=== PATIENT | male | born 1970 | race Caucasian/White ===

== ENCOUNTER 2023-08-03 14:07 | Emergency (ER) | payer BC ==
[~2023-08-03] VITALS: Ht 160 cm; Wt 81.6 kg
[2023-08-03 14:26] VITALS: BP 142/92; PULSE 83; RESP 19; TEMP 97.7; O2SAT 98
[2023-08-03 15:07] LABS: APPEARANCE,URINE CLEAR (CLEAR); BILIRUBIN,URINE NEGATIVE (NEGATIVE); BLOOD, URINE NEGATIVE (NEGATIVE); COLOR,URINE YELLOW (YELLOW); LEUKOCYTE ESTERASE ,URINE NEGATIVE (NEGATIVE); NITRITE, URINE NEGATIVE (NEGATIVE); PROTEIN,URINE NEGATIVE (NEGATIVE); UGLUCOSE 2+ (NEGATIVE); UROBILINOGEN,URINE 0.2 EU/dL (0.2 - 1)
[2023-08-03 15:42] LABS: BASOPHILS # (AUTO) 0.1 K/uL (0.00-0.22); BASOPHILS % (AUTO) 1.1 % (0.0-2.0); EOSINOPHILS # (AUTO) 0.1 K/uL (0-0.4); EOSINOPHILS % (AUTO) 1.8 % (0.0-4.0); HEMATOCRIT 47.1 % (36-52); HEMOGLOBIN 16.8 g/dL (12.0-18.0); LYMPHOCYTES # (AUTO) 1.9 K/uL (2.0-11.5); MEAN CORPUSCULAR HEMOGLOBIN 32 pg (27-31); MEAN CORPUSCULAR HGB CONC 36 g/dL (33-37); MEAN CORPUSCULAR VOLUME 88.9 fL (80-94); MONOCYTES # (AUTO) 0.5 K/uL (0.8-1.0); MONOCYTES % (AUTO) 6.9 % (1.7-9.3); NEUTROPHILS # (AUTO) 4.9 K/uL (1.8-7.7); NEUTROPHILS % (AUTO) 65.2 % (42.2-75.2); PLATELET COUNT (AUTO) 189 K/uL (140-450); RED CELL DISTRIBUTION WIDTH 13.1 % (11.6-13.7); WHITE BLOOD COUNT (AUTO) 7.5 K/uL (4.8-10.8)
[2023-08-03 16:00] LABS: ANION GAP 11.2 (8-16); CALCIUM 8.9 mg/dL (8.5-10.1); CARBON DIOXIDE 27.7 mmol/L (21-32); CREATININE 0.9 mg/dL (0.6-1.3); POTASSIUM 3.9 mmol/L (3.5-5.1)
[2023-08-03 16:06] LABS: ALBUMIN 3.8 g/dL (3.4-5.0); BILIRUBIN,DIRECT 0.2 mg/dL (0.0-0.3); TOTAL BILIRUBIN 0.8 mg/dL (0.0-1.0); TOTAL PROTEIN, SERUM 7.1 g/dL (6.4-8.2)
[2023-08-03] MEDS ORDERED: DICYCLOMINE HCL LIQUID 10 MG/5 ML UDC ONE (16:58)
[2023-08-03] MEDS ORDERED: ALUMINUM HYD/MAG/SIMETHICONE 30 ML UDC ONE (16:58)
[2023-08-03] MEDS: ONDANSETRON 4 MG/2 ML VIAL IVP ONE (17:18)
[2023-08-03] MEDS: KETOROLAC 30 MG/ML VIAL IVP ONE (17:19)
[2023-08-03] MEDS: DICYCLOMINE HCL LIQUID 20 MG, ALUMINUM HYD/MAG/SIMETHICONE 30 ML, LIDOCAINE VISCOUS 2% ... PO ONE (17:22)
[2023-08-03] MEDS ORDERED: ONDA-188 SL (18:41)
[2023-08-03 19:02] VITALS: BP 129/87; PULSE 89; RESP 12; TEMP 97.7; O2SAT 96
== END 2023-08-03 19:02 | disposition home or self-care (01) ==
LOC: MED 14:07
DX: R10.11 Right upper quadrant pain (principal); K21.9 Gastro-esophageal reflux disease without esophagitis; Z79.899 Other long term (current) drug therapy
CPT/HCPCS: 36415; 74176; 76705; 80048; 80076; 81003; 82150; 83690; 85025; 96374; 96375; 99285; J1885; J2405; Q0092

== ENCOUNTER 2023-09-08 01:50 | Emergency (ER) | payer BC ==
[~2023-09-08] VITALS: Ht 160 cm; Wt 78.0 kg
[~2023-09-08 01:50] MED LIST: ONDA-188 SL
[2023-09-08 02:03] VITALS: BP 148/94; PULSE 75; RESP 14; TEMP 98.8; O2SAT 98
[2023-09-08 05:56] VITALS: BP 164/93; PULSE 64; RESP 18; TEMP 98.4
[2023-09-08 06:26] VITALS: O2SAT 99
[2023-09-08] MEDS ORDERED: AMOX500C25 PO (06:38)
[2023-09-08] MEDS ORDERED: BENZ-300 PO (06:38)
[2023-09-08] MEDS: DEXAMETHASONE 10 MG/ML VIAL PO ONE (06:41)
== END 2023-09-08 06:50 | disposition home or self-care (01) ==
LOC: MED 01:50
DX: K12.2 Cellulitis and abscess of mouth (principal); K21.9 Gastro-esophageal reflux disease without esophagitis; Z79.899 Other long term (current) drug therapy
CPT/HCPCS: 87081; 99283; J1100